=== PATIENT | female | born 1955 | race Two or more races ===

== ENCOUNTER → 2023-09-18 | Outpatient (CLI) | payer MEDICARE ==
--- NOTE | 2023-09-20 14:24 | BD ---
EXAMINATION TYPE: Axial Bone Density DATE OF EXAM: 09/18/2023 CLINICAL HISTORY: 68 years old Female. ICD-10 CODE: Z78.0 N95.1 Menopause Height: 62" Weight: 132lbs FRAX RISK QUESTIONS: Alcohol (3 or more units per day): No Family History (Parent hip fracture): No Glucocorticoids (More than 3mos): No (Ex: prednisone, prednisolone, methylprednisolone, dexamethasone, and hydrocortisone). History of Fracture in Adulthood: No Secondary Osteoporosis: 1. Type 1 Diabetes: No 2. Hyperthyroidism: No 3. Menopause before 45: No 4. Malnutrition: No 5. Chronic liver disease: No Rheumatoid Arthritis: No Current Tobacco Use: No RISK FACTORS HISTORY OF: Hip Fracture (Right/Left): No Spine Fracture: No History of Wrist Fracture: No Surgery to Spine/Hip(right/left)/Wrist (right/left): No Family History of Osteoporosis: No Active: Yes Diet low in dairy products/other sources of calcium: No Postmenopausal woman: Yes Lost more than 2 inches in height since high school: ?No Frequent falls: No Poor Health: No Hyperparathyroidism: No Adrenal Insufficiency: No MEDICATIONS: Prednisone or other steroids: No Thyroid Medications: No Osteoporosis Medications: No Additional Medications: Patient states she takes one pill at night but she is unsure of the name of i t or what it's taken for. Additional History: N/A EXAM MEASUREMENTS: Bone mineral densitometry was performed using the [employer] System. Bone mineral density as measured about the Lumbar spine is: ----- L1-L4(G/cm2): 1.165 T Score Values are as follows: ----- L1: -1.6 ----- L2: -0.8 ----- L3: -0.3 ----- L4: 1.5 ----- L1-L4: -0.1 Z Score Values are as follows: ----- L1: 0.2 ----- L2: 1.0 ----- L3: 1.5 ----- L4: 3.3 ----- L1-L4: 1.7 Baseline @ [facility] Bone mineral density about the R hip (g/cm2): 0.773 Bone mineral density about the L hip (g/cm2): 0.807 T Score values are as follows: -----R Neck: -2.6 -----L Neck: -1.9 -----R Total: -1.9 -----L Total: -1.6 Z Score values are as follows: -----R Neck: -0.8 -----L Neck: -0.2 -----R Total: -0.4 -----L Total: -0.1 Baseline @ [facility] FRAX%s: The graph provided illustrates a 8.4% chance for a major osteoporotic fx and a 2.1% chance fo r the hips probability for fx in 10 years time. IMPRESSION: Osteoporosis (T Score less than -2.5). There is increased fracture risk and therapy is usually indicated based on age. Re-Screen 1-2 years. NOTE: T-SCORE=SD OF THE YOUNG ADULT MEAN.
--- NOTE | 2023-09-22 19:30 | MM ---
Reason for Exam: Screening (asymptomatic). Patient History: Menarche at age 16. First Full-Term at age 30. Late child-bearing (after 30). Postmenopausal. Patient has history of breast feeding. Risk Values: Debbi 5 year model risk: 2.1%. NCI Lifetime model risk: 6.9%. Prior Study Comparison: No prior studies available for comparison. Tissue Density: The breast tissue is heterogeneously dense. This may lower the sensitivity of mammography. Findings: Analyzed By CAD. No significant mass, suspicious microcalcification, or other discrete abnormality is seen. Overall Assessment: Negative, BI-RAD 1 Management: Screening Mammogram of both breasts in 1 year. . Patient should continue monthly self-breast exams. A clinical breast exam by your physician is recommended on an annual basis. This exam should not preclude additional follow-up of suspicious palpable abnormalities. Note on Debbi scores and lifetime risk: 1. A Debbi score greater than 3% is considered moderate risk. If this is the case, consider specialist referral to assess eligibility for a risk reducing agent. 2. If overall lifetime risk for the development of breast cancer is 20% or higher, the patient may qualify for future screening with alternating mammogram and breast MRI. Electronically signed and approved by: Rachele Ingram M.D. Radiologist
== END | disposition home or self-care (01) ==
LOC: RADBDWWP 15:34
PROVIDERS: ATTEND Family Medicine
DX: Z12.31 Encounter for screening mammogram for malignant neoplasm of breast (principal); M81.0 Age-related osteoporosis without current pathological fracture; M85.852 Other specified disorders of bone density and structure, left thigh; Z78.0 Asymptomatic menopausal state
CPT/HCPCS: 77063; 77067; 77080

== ENCOUNTER → 2024-11-04 | Outpatient (CLI) | payer MEDICARE ==
--- NOTE | 2024-11-04 12:14 | MM ---
Reason for Exam: Screening (asymptomatic). Last mammogram was performed 1 year(s) and 1 month(s) ago. Patient History: Menarche at age 16. First Full-Term at age 30. Late child-bearing (after 30). Postmenopausal. Patient has history of breast feeding. Risk Values: Debbi 5 year model risk: 2.2%. NCI Lifetime model risk: 6.6%. Prior Study Comparison: 09/18/2023 Bilateral MG 3D screening mammo w/cad, [facility]. Tissue Density: The breasts are heterogeneously dense, which may obscure small masses. Findings: Analyzed By CAD. There is no suspicious group of microcalcifications or new suspicious mass in either breast. Overall Assessment: Negative, BI-RAD 1 Management: Screening Mammogram of both breasts in 1 year. . Patient should continue monthly self-breast exams. A clinical breast exam by your physician is recommended on an annual basis. This exam should not preclude additional follow-up of suspicious palpable abnormalities. Note on Debbi scores and lifetime risk: 1. A Debbi score greater than 3% is considered moderate risk. If this is the case, consider specialist referral to assess eligibility for a risk reducing agent. 2. If overall lifetime risk for the development of breast cancer is 20% or higher, the patient may qualify for future screening with alternating mammogram and breast MRI. [facility], , 11/04/2024 12:11 PM. Electronically signed and approved by: Rachele Ingram M.D. Radiologist
== END | disposition home or self-care (01) ==
LOC: RADMAMWWP 11:33
PROVIDERS: ATTEND Family Medicine
DX: Z12.31 Encounter for screening mammogram for malignant neoplasm of breast (principal); Z78.0 Asymptomatic menopausal state; R92.323 Mammographic fibroglandular density, bilateral breasts
CPT/HCPCS: 77063; 77067